=== PATIENT | male | born 1955 | race Caucasian/White ===

== ENCOUNTER → 2017-07-11 | Outpatient (CLI) | payer OTHER ==
[~2017-07-11] MED LIST: ACTOS15 MG; AMBIEN 5 MG TABL5 M1 PO; ASPIR 8181 M1 PO; ASPIRIN81 M2; ATIVAN0.5 MG PO; CARVEDILOL3.125 MG PO; COREG6.25 MG PO; COZAAR 25 MG TA25 M1 PO; COZAAR 25 MG TA25 M2 PO; CRESTOR10 MG PO; LANTUS100 UNIT/M SUBQ; LANTUSSOLASTAR; LASIX 40 MG TAB40 M2 PO; LIPITOR20 MG; LOTREL 10-20 M1 EACH; METFORMIN HCL500 MG PO; ZETIA10 MG; ZETIA10 MG PO
== END ==
LOC: RAD 12:26
DX: R05 Cough (principal); R06.2 Wheezing

== ENCOUNTER 2017-08-15 08:36 | Inpatient (IN) | payer OTHER ==
[~2017-08-15] VITALS: Ht 182.9 cm; Wt 105.2 kg
--- NOTE | ~2017-08-15 | 2DMMODE ---
[facility] [address] [place] [address] 2 D/M-MODE ECHOCARDIOGRAM Name: NADEGE IRVING Room #: 170-4 ADM IN ..#: [id number] Admission: 08/15/17 Attend Phys: [place] Rawls MD Discharge: Date of : 51 Date of Service: 08/15/17 1113 Report #: [id number] THIS REPORT FOR: //name// APPROVED REPORT Study performed: 08/15/2017 10:22:35 EXAM: Comprehensive 2D, Doppler, and color-flow Echocardiogram Patient Location: ER Room #: 4 Status: stat BSA: 2.29 HR: 101 bpm BP: 162/81 mmHg Other Information Study Quality: Adequate Indications Diabetes Dyspnea CAD Cardiomyopathy 2D Dimensions RVDd: 36.64 mm LVEF(%): 20.42 (>50%) IVSd: 12.90 (7-11mm) LVOT Diam: 23.65 (18-24mm) LVDd: 63.52 mm PWd: 13.18 (7-11mm) Ascending Ao: 36.41 (22-36mm) LVDs: 57.47 (25-40mm) Aortic Root: 35.83 mm IVC: 27.00 mm Bob's LVEF: 20.42 % Volumes Left Atrial Volume (Systole) Single Plane 4CH: 56.11 mL Single Plane 2CH: 62.18 mL LA ESV Index: 30.00 mL/m2 Aortic Valve AoV Peak Andre.: 1.14 m/s AO Peak Gr.: 5.23 mmHg LVOT Max P.10 mmHg LVOT Max V: 0.88 m/s GIO Vmax: 3.38 cm2 Pulmonary Valve [facility] [place] [address] 2 D/M-MODE ECHOCARDIOGRAM Name: NADEGE IRVING Room #: 170-4 ADM IN [facility].#: [id number] Admission: 08/15/17 Attend Phys: [place] Rawls MD Discharge: Date of : 51 Date of Service: 08/15/17 1113 Report #: [id number] PV Peak Andre.: 0.90 m/s PV Peak Gr.: 3.21 mmHg Tricuspid Valve TR Peak Andre.: 3.69 m/s TR Peak Gr.: 54.34 mmHg PA Pressure: 69.00 mmHg Left Ventricle Left ventricle is dilated. There is global hypokinesis of the left ventricle. Mild concentric left ventricular hypertrophy. Left ventricular ejection fraction is severely decreased. LVEF is 15-20%. This study is not technically sufficient to allow evaluation of the LV diastolic function. Right Ventricle The right ventricle is normal size. Right ventricle is hypokinetic. Atria Left atrium is at the upper limits of normal. Right atrium is dilated. Aortic Valve The aortic valve is normal in structure. No aortic regurgitation is present. There is no aortic valvular stenosis. Mitral Valve The mitral valve is normal in structure. Mild mitral regurgitation. No evidence of mitral valve stenosis. Tricuspid Valve The tricuspid valve is normal in structure. There is mild tricuspid regurgitation. The right atrial pressure is estimated at mmHg. There is moderate-severe pulmonary hypertension. Pulmonic Valve The pulmonary valve is normal in structure. Trace pulmonic regurgitation. Great Vessels The aortic root is normal in size. The inferior vena cava is dilated with no inspiratory collapse. Pericardium There is no pericardial effusion. [facility] [place] [address] 2 D/M-MODE ECHOCARDIOGRAM Name: NADEGE IRVING Room #: 170-4 ADM IN M.R.#: [id number] Admission: 08/15/17 Attend Phys: [place] Rawls MD Discharge: Date of : 51 Date of Service: 08/15/17 1113 Report #: [id number] <Conclusion> Left ventricle is dilated. There is global hypokinesis of the left ventricle with more prominent mid to apical hypokinesis of anterior wall. LVEF is 15-20%. The right ventricle is normal size. Right ventricle is hypokinetic. Right atrium is dilated. The aortic valve is normal in structure. The mitral valve is normal in structure. Mild mitral regurgitation. The tricuspid valve is normal in structure. There is mild tricuspid regurgitation. The right atrial pressure is estimated approx 60-70 mmHg. There is moderate-severe pulmonary hypertension. There is no pericardial effusion. <ELECTRONICALLY SIGNED> By: Herbert Ceja MD 08/15/17 1113 12 12 Herbert Ceja MD /INF
--- NOTE | ~2017-08-15 | CATHLAB ---
[facility] [address] [place] [address] INVASIVE PROCEDURE REPORT Name: ARISTIDESNADEGE Ruchi Room #: 219-P ADM IN ..#: [id number] Admission: 08/15/17 Attend Phys: [place] Rawls MD Discharge: Date of : 51 Date of Service: 08/18/17 1141 Report #: [id number] THIS REPORT FOR: //name// APPROVED REPORT Patient Details Patient Status: In-Patient Room #: The patient is a 62 year-old male Event Personnel Herbert Ceja Grading Machine Operator, Juan Carlos Fitch RN, Hina Galvez RTR, Daria Roach Amber Monitor Procedures Performed Art Access - L femoral artery* 09938 Initial Mod Sed Same Phys/QHP Gr5y 331050 10631 Mod Sed Same Phys/QHP Ea 533366 Coronaries Angiography and Bypass Grafts 412019 CORCABG Supravalvular Aortography Injection 8156014 ISVA Hemostasis w/ Mynx Indication Non-STEMI (>48 hrs to = 72 hrs), Heart failure Procedure Narrative The patient was brought urgently to the Cardiac Catheterization Laboratory and was prepped and draped in a sterile manner. The Right Groin^ was infiltrated with 1% Lidocaine subcutaneous anesthesia. A PINNACLE 5FR Sheath #[id number] sheath was inserted into the LFA^. Coronary angiography was performed using coronary diagnostic catheters. The right coronary system was accessed and visualized with a JR 4 catheter. The left coronary system was accessed and visualized with a JL 4 catheter. Pre-demployment femoral angiogram was performed . Closure device was deployed with a 5 Fr Mynx. The patient tolerated the procedure well and there were no complications associated with the procedure. There was no hematoma. Intraoperative Conscious Sedation Sedation start time: 12:31 Case end Time: 13:10 Versed 2 mg Fluoro Time: 9.34 minutes Dose: DAP 9837.20 cGycm2 1333 mGy Contrast Type and Amount: Omnipaque 125 ml [facility] [place] [address] INVASIVE PROCEDURE REPORT Name: ARISTIDESNADEGE Room #: 219-P [facility] IN ..#: [id number] Admission: 08/15/17 Attend Phys: [place] Rawls MD Discharge: Date of : 51 Date of Service: 08/18/17 1141 Report #: [id number] Coronary Angiography The patient's coronary anatomy is right dominant. Samish Artery Percent Stenosis Grafts (Complete if Previous CABG=Yes: Percent Stenosis) Left Main: % Prox LAD: % Mid/Distal LAD: 0 % Circumflex: 100 % RCA: 30 % Ramus: % Diagnostic Cath Left Main Normal origin and caliber which rapidly tapers to a distal 90% lesion prior to bifurcating into left anterior descending and left circumflex fluoroscopically heavily calcified LAD Diminutive size vessel heavily calcified on fluoroscopy that has a 95+ percent lesion at its origin and then terminates in the proximal portion. The distal portion is filled via left internal mammary bypass grafting that demonstrates a diminutive vessel with diffuse moderate to high-grade lesions Diagonal 1 Small-caliber vessel diffusely diseased Circumflex Diminutive size vessel with a high-grade lesion at its origin and then continues in the AV groove a short distance and is completely occluded. Marginal branches faintly fill via homo-and heterocollateral collaterals put her string-like in nature Right Coronary Small-caliber vessel which is proximally occluded. The distal portion is supplied by a saphenous vein graft which is patent although flow was sluggish. The right coronary artery circulation is diminutive with string-like vessels which are highly lead diffusely diseased. Left Ventriculography Left Ventriculography was not performed. Aortic root injection was performed which demonstrated a normal size aortic root and ascending aorta. A patent saphenous vein graft to the right coronary artery was noted with no other saphenous vein grafts present Hemodynamics The aortic pressure is 145/86 mmHg with a mean of 102 mmHg. Conclusion 1. Severe coronary artery disease status post aortocoronary bypass grafting with progression of koi disease and occluded SVG of the circumflex circulation 2. Abnormal he whether demonstrated elevated left ventricular end-diastolic pressures [facility] [address] [place] [address] INVASIVE PROCEDURE REPORT Name: SEENADEGE Room #: 219-P [facility] IN M.R.#: [id number] Admission: 08/15/17 Attend Phys: [place] Rawls MD Discharge: Date of : 51 Date of Service: 08/18/17 1141 Report #: [id number] Recommendations Aggressive Medical Therapy Optimize ration of guidelines directed medical therapy for cardiomyopathic disease <ELECTRONICALLY SIGNED> By: Herbert Ceja MD 08/18/17 1141 114 114 Herbert Ceja MD /INF
--- NOTE | ~2017-08-15 | EKG ---
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 : 1955 Requested By: Kim Ahn Order Number: [id number] MD: Brian Jones Measurements Intervals [place] Rate: 101 P: 61 MT: 201 QRS: -6 QRSD: 144 T: 152 QT: 350 QTc: 454 Interpretive Statements Sinus tachycardia Ventricular premature complex Probable left atrial enlargement Left bundle branch block Compared to ECG 02/28/2008 09:44:20 No significant change was found Electronically Signed On 08-16-2017 7:46:46 MOLD MAKING SUPERVISOR by Brian Jones [email or web address] <ELECTRONICALLY SIGNED> By: Brian Jones MD, [facility] 08/16/17 0746 0 0 Brian Jones MD, [facility] /EPI
--- NOTE | ~2017-08-15 | EKG ---
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 : 1955 Requested By: Kim Ahn Order Number: [id number] MD: Brian Jones Measurements Intervals [place] Rate: 102 P: 53 SD: 192 QRS: -6 QRSD: 145 T: 163 QT: 355 QTc: 463 Interpretive Statements Sinus tachycardia Paired ventricular premature complexes Left bundle branch block Compared to ECG 02/28/2008 09:44:20 Ventricular premature complex(es) now present Left bundle branch block is now present Electronically Signed On 08-16-2017 7:46:24 INSOLE AND HEEL STIFFENER by Brian Jones [email or web address] <ELECTRONICALLY SIGNED> By: Brian Jones MD, [facility] 08/16/17 0746 0842 0842 Brian Jones MD, [facility] /EPI
[~2017-08-15 08:36] MED LIST changes: -AMBIEN 5 MG TABL5 M1 PO; -ASPIR 8181 M1 PO; -ATIVAN0.5 MG PO; -CARVEDILOL3.125 MG PO; -COREG6.25 MG PO; -COZAAR 25 MG TA25 M1 PO; -COZAAR 25 MG TA25 M2 PO; -CRESTOR10 MG PO; -LANTUS100 UNIT/M SUBQ; -LASIX 40 MG TAB40 M2 PO; -METFORMIN HCL500 MG PO; -ZETIA10 MG PO
[2017-08-15 08:39] VITALS: BP 156/117
[2017-08-15 09:04] LABS: ABSOLUTE NEUTROPHILS 5.4 thou/uL (1.4-8.2); BASOPHILS 0.6 % (0.0-2.0); EOSINOPHILS 1.6 % (0.0-3.0); HEMATOCRIT 51.2 % (42.0-52.0); HEMOGLOBIN 17.2 gm/dL (14.0-18.0); MCHC 33.7 g/dL (28.0-37.0); MCV 89.3 fL (80.0-100.0); MONOCYTES 8.2 % (1.0-8.0); PLATELET COUNT 187 thou/uL (150-400); POLYS 51.6 % (36.0-66.0); RBC 5.73 mil/uL (4.50-6.00); RDW 14.5 % (10.5-14.5); WBC 10.4 thou/uL (4.0-11.0)
[2017-08-15 09:15] LABS: CALCIUM 9.4 mg/dL (8.5-10.1); CREATININE 1.3 mg/dL (0.7-1.3); POTASSIUM 4.2 mmol/L (3.5-5.1)
[2017-08-15 09:24] LABS: TROPONIN-I 4.53 ng/mL (<0.06)
[2017-08-15] MEDS ORDERED: METFORMIN HCL500 MG PO (09:34)
[2017-08-15 09:46] LABS: APTT 24.8 Seconds (24.5-32.8); PROTIME 10.5 Seconds (9.3-11.4)
[2017-08-15 11:09] VITALS: BP 145/100
[2017-08-15 15:13] VITALS: BP 150/94
[2017-08-15 19:15] VITALS: BP 133/81
[2017-08-16 00:12] VITALS: BP 155/96
[2017-08-16 01:03] LABS: CALCIUM 8.8 mg/dL (8.5-10.1); CREATININE 1.3 mg/dL (0.7-1.3); POTASSIUM 3.9 mmol/L (3.5-5.1)
[2017-08-16 03:51] VITALS: BP 132/101
[2017-08-16 07:25] VITALS: BP 161/84
[2017-08-16 11:54] VITALS: BP 134/78
[2017-08-16 16:20] VITALS: BP 137/86
[2017-08-16 19:54] VITALS: BP 133/79
[2017-08-16 19:59] LABS: HEMATOCRIT 48.1 % (42.0-52.0); HEMOGLOBIN 16.2 gm/dL (14.0-18.0); MCH 30.1 pg (26.0-34.0); MCHC 33.7 g/dL (28.0-37.0); MCV 89.4 fL (80.0-100.0); RBC 5.38 mil/uL (4.50-6.00); RDW 14.3 % (10.5-14.5); WBC 8.8 thou/uL (4.0-11.0)
[2017-08-16 20:04] LABS: CALCIUM 9.2 mg/dL (8.5-10.1); CREATININE 1.3 mg/dL (0.7-1.3); POTASSIUM 4.4 mmol/L (3.5-5.1)
[2017-08-17] VITALS (16 sets, daily range): BP systolic 112–156; BP diastolic 63–106
[2017-08-17 04:17] LABS: CALCIUM 9.2 mg/dL (8.5-10.1); CREATININE 1.2 mg/dL (0.7-1.3); POTASSIUM 4.2 mmol/L (3.5-5.1)
[2017-08-18] VITALS (8 sets, daily range): BP systolic 137–150; BP diastolic 63–101
[2017-08-18 03:26] LABS: HEMOGLOBIN 16.3 gm/dL (14.0-18.0); MCHC 33.2 g/dL (28.0-37.0); MCV 90.6 fL (80.0-100.0); RBC 5.41 mil/uL (4.50-6.00); RDW 14.3 % (10.5-14.5); WBC 9.5 thou/uL (4.0-11.0)
[2017-08-18 03:32] LABS: CALCIUM 9.3 mg/dL (8.5-10.1); CREATININE 1.2 mg/dL (0.7-1.3); POTASSIUM 4.5 mmol/L (3.5-5.1)
[2017-08-18] MEDS ORDERED: CARVEDILOL3.125 MG PO (11:00)
[2017-08-18] MEDS ORDERED: COZAAR 25 MG TA25 M1 PO (11:00)
[2017-08-18] MEDS ORDERED: LASIX 40 MG TAB40 M2 PO (11:00)
[2017-08-19 04:00] VITALS: BP 124/84
[2017-08-19 07:40] VITALS: BP 136/97
[2017-08-19 11:20] VITALS: BP 123/66
[2017-08-19] MEDS ORDERED: COZAAR 25 MG TA25 M2 PO (11:39)
[2017-08-19 11:57] VITALS: BP 136/97
[2017-08-19 12:16] VITALS: BP 136/97
== END 2017-08-19 15:07 | disposition home or self-care (01) | DRG 280 ==
LOC: ER 08:36 → 2N 09:42 → EROBS 09:42 → 2N 11:23
PROVIDERS: Emergency Medicine; Hospitalist; Internal Medicine
PROC: B2111ZZ Fluoroscopy of Multiple Coronary Arteries using Low Osmolar Contrast (ICD-10-PCS; principal; 2017-08-18)
PROC: B21F1ZZ Fluoroscopy of Other Bypass Graft using Low Osmolar Contrast (ICD-10-PCS; principal; 2017-08-18)
PROC: 4A023N7 Measurement of Cardiac Sampling and Pressure, Left Heart, Percutaneous Approach (ICD-10-PCS; principal; 2017-08-18)
DX: I21.4 Non-ST elevation (NSTEMI) myocardial infarction (principal); I50.23 Acute on chronic systolic (congestive) heart failure; J42 Unspecified chronic bronchitis; E11.9 Type 2 diabetes mellitus without complications; E78.5 Hyperlipidemia, unspecified; I11.0 Hypertensive heart disease with heart failure; I25.10 Atherosclerotic heart disease of native coronary artery without angina pectoris; I25.5 Ischemic cardiomyopathy; I25.2 Old myocardial infarction; Z95.1 Presence of aortocoronary bypass graft; Z79.899 Other long term (current) drug therapy; Z79.82 Long term (current) use of aspirin; Z79.4 Long term (current) use of insulin
CPT/HCPCS: 10194

== ENCOUNTER 2017-11-11 07:28 | Observation (INO) | payer OTHER ==
[~2017-11-11] VITALS: Ht 182.9 cm; Wt 105.8 kg
[2017-11-11] VITALS (11 sets, daily range): BP systolic 132–182; BP diastolic 62–137
--- NOTE | ~2017-11-11 | H ---
[facility] [place] [address] [address] HISTORY AND PHYSICAL Name: ARISTIDESNADEGE Room #: 217-P [facility] M.R.#: [id number] Admission: 11/11/17 Attend Phys: Herbert Ceja Discharge: 11/12/17 Date of : 51 Report #: [id number] THIS REPORT FOR: //name// CC: Herbert Rutherford HISTORY OF PRESENT ILLNESS: He is a very pleasant gentleman, known to me, who presents for elective insertion of an implantable cardioverter defibrillator. The patient has been diagnosed with ischemic cardiomyopathy, was optimized on medical regimen and presents for assessment after failed improvement of left ventricular function. Otherwise, history is unchanged from that recorded in the chart from the office. PHYSICAL EXAMINATION: GENERAL: Shows an alert and oriented male, resting comfortably, in no distress. VITAL SIGNS: I have reviewed his vitals in the chart. HEENT: Normocephalic, atraumatic. Pupils are equal, round, reactive to light and accommodation. Extraocular muscles are intact. Sclerae and conjunctivae are anicteric. NECK: JVD is normal. Carotid upstrokes are bilaterally symmetrical. No bruits are heard. No thyromegaly. No lymphadenopathy. LUNGS: Clear to auscultation. No wheezes, rhonchi or crackles. No CVA tenderness. CARDIAC: Demonstrates a regular rhythm. Normal first and second heart sounds. No ventricular or atrial gallops, no rubs noted. No murmurs. No lifts or heaves, PMI normal. ABDOMEN: Soft, nontender, nondistended. Normal bowel sounds. EXTREMITIES: Without cyanosis, clubbing or edema. Distal pulses are intact. DTR symmetrical. NEUROLOGIC: Cranial nerves 2-12 are grossly normal and symmetrical. PSYCHIATRIC: Alert, oriented with normal affect. SKIN: Warm and dry. IMPRESSION: Cardiomyopathy, presents for ICD placement for primary prevention having been optimized on medical regimen. Risks, complications and alternatives of procedure have been discussed with the patient who voiced understanding and wishes to proceed. <ELECTRONICALLY SIGNED> By: Herbert Ceja MD 11/23/17 1632 1739 1750 Herbert Ceja MD /nt
--- NOTE | ~2017-11-11 | CATHLAB ---
[facility] [place] [address] INVASIVE PROCEDURE REPORT Name: SEENADEGE NICHOLAS Room #: 217-P [facility] IN M.R.#: [id number] Admission: 11/11/17 Attend Phys: Herbert Chowdary Discharge: 11/12/17 Date of : 51 Date of Service: 11/21/17 1721 Report #: [id number] THIS REPORT FOR: //name// APPROVED REPORT Study performed: 11/11/2017 11:06:15 Event Personnel: Herbert Ceja Senior Research Consultant, Nicki Huff Monitor, Hina Galvez RTR, Daljit Roach Christine RTR Monitor, Juan Carlos Fitch RN The patient is a 62 year-old male with a history of . Patient Info Last EF%: 30 Date: 10/11/17 NYHA Heart Class: II CHF: Chronic Systolic Reason for implant: Primary prevention Intraoperative Conscious Sedation Sedation start time: 12:01 Case end Time: 13:19 Versed 5 mg Implanted Devices: [employer] generator model CD 235 74 0 every 0 number [id number], atrial lead 2088 TC/52 serial number [id number], ventricular lead 71-2 every serial number [id number] Procedure After explaining the risks, benefits, and alternative options, informed consent was obtained from the patient. The patient was brought to the cardiac catheterization lab and the left chest and shoulder were prepped and draped in the usual fashion. During this case, Fluoroscopy and no contrast were used for imaging. Complications The patient tolerated the procedure well and there were no complications associated with the procedure. Patient was sedated with intravenous Versed and Demerol. Total dosing is noted in the chart. Continuous elective cardiographic and oximetric monitoring occurred that entire procedure. Following sedation visualization of the first ray was noted on fluoroscopy. [facility] [address] [place] [address] INVASIVE PROCEDURE REPORT Name: NADEGE IRVING CRISTOPHER Room #: 217-P [facility] IN M.R.#: [id number] Admission: 11/11/17 Attend Phys: Herbert Chowdary Discharge: 11/12/17 Date of : 51 Date of Service: 11/21/17 1721 Report #: [id number] Local anesthetic involving one percent lidocaine was then instilled in the proposed incision and deep in the tissues. Using both sharp and blunt dissection and incision was carried forth in a pocket developed. Utilizing a modified Seldinger technique the left subclavian vein was accessed with 2 separate sticks. Peel-away sheath were then placed leads were advanced under fluoroscopic visualization and positioned. These were screw-in leads with the atrial lead in the right atrial appendage and the right ventricular single coil lead in the mid intraventricular septum. Capture sensing thresholds were then verified her device was then connected the pocket the chest device and the leads were all irrigated with antibiotic solution. The device is in place in the pocket and closed with 3 layers to deeper layers were with nonabsorbable running locking sutures and the skin was closed with a 30 absorbable subcuticular stitch. Steri-Strips 4 x 4 OpSite was then utilized. There were no complications and patient tolerated procedure well Findings Specimens Removed: No Right atrial P wave 3.2 mV impedance 478 ohms capture threshold 0.7 V at a pulse width of 0.5 ms Right ventricular R waves 10.7 mV impedance 691 ohms capture threshold of 0.4 at 0.5 ms pulse width Setting DDD base rate of 60 max sensor of 120. VT zone at 181 VF zone at 222 Conclusion 1. Successful implantation of a dual-chamber ICD Recommendations 1. Routine post ICD implantation card and myopathic patient. Wound check in 7 days follow-up in 4 weeks. <ELECTRONICALLY SIGNED> By: Herbert Ceja MD 11/21/17 172 20 20 Herbert Ceja MD /INF
[~2017-11-11 07:28] MED LIST changes: +CARVEDILOL3.125 MG PO; +COZAAR 25 MG TA25 M1 PO; +COZAAR 25 MG TA25 M2 PO; +LASIX 40 MG TAB40 M2 PO; +METFORMIN HCL500 MG PO
[2017-11-11] MEDS ORDERED: ASPIR 8181 M1 PO (08:07)
[2017-11-11] MEDS ORDERED: LASIX 40 MG TAB40 M2 PO (08:08)
[2017-11-11] MEDS ORDERED: COREG6.25 MG PO (08:08)
[2017-11-11] MEDS ORDERED: ZETIA10 MG PO (08:08)
[2017-11-11] MEDS ORDERED: LANTUS100 UNIT/M SUBQ (08:09)
[2017-11-11] MEDS ORDERED: METFORMIN HCL500 MG PO (08:10)
[2017-11-11] MEDS ORDERED: COZAAR 25 MG TA25 M1 PO (08:10)
[2017-11-11] MEDS ORDERED: ATIVAN0.5 MG PO (08:10)
[2017-11-11] MEDS ORDERED: CRESTOR10 MG PO (08:10)
[2017-11-11] MEDS ORDERED: AMBIEN 5 MG TABL5 M1 PO (08:11)
[2017-11-12 00:09] VITALS: BP 151/67
[2017-11-12 04:54] VITALS: BP 154/74
[2017-11-12 07:50] VITALS: BP 174/70
[2017-11-12 10:12] VITALS: BP 174/70
== END 2017-11-12 13:00 | disposition home or self-care (01) ==
LOC: CATH 07:28 → 2N 08:13 → CATH 10:32 → 2N 14:20 → CATH 15:49 → 2N 11-12 13:00
DX: I25.5 Ischemic cardiomyopathy (principal); I25.10 Atherosclerotic heart disease of native coronary artery without angina pectoris; I10 Essential (primary) hypertension; E78.5 Hyperlipidemia, unspecified; Z79.899 Other long term (current) drug therapy; Z79.82 Long term (current) use of aspirin; Z95.810 Presence of automatic (implantable) cardiac defibrillator

== ENCOUNTER → 2018-04-03 | Outpatient (CLI) | payer OTHER ==
[~2018-04-03] MED LIST changes: +AMBIEN 5 MG TABL5 M1 PO; +ASPIR 8181 M1 PO; +ATIVAN0.5 MG PO; +COREG6.25 MG PO; +CRESTOR10 MG PO; +LANTUS100 UNIT/M SUBQ; +ZETIA10 MG PO
[2018-04-03 09:30] LABS: PROTIME 10.3 Seconds (9.3-11.4)
== END | disposition home or self-care (01) ==
LOC: RAD 08:12
PROVIDERS: Radiology Diagnostic Radiology
DX: M48.061 Spinal stenosis, lumbar region without neurogenic claudication (principal); M12.88 Other specific arthropathies, not elsewhere classified, other specified site; M99.73 Connective tissue and disc stenosis of intervertebral foramina of lumbar region; M51.36 Other intervertebral disc degeneration, lumbar region; I21.4 Non-ST elevation (NSTEMI) myocardial infarction; E11.9 Type 2 diabetes mellitus without complications; I11.0 Hypertensive heart disease with heart failure; I50.9 Heart failure, unspecified; Z95.810 Presence of automatic (implantable) cardiac defibrillator; Z98.890 Other specified postprocedural states; Z79.82 Long term (current) use of aspirin; Z79.84 Long term (current) use of oral hypoglycemic drugs; Z79.4 Long term (current) use of insulin; Z79.899 Other long term (current) drug therapy; Z95.1 Presence of aortocoronary bypass graft; Z96.641 Presence of right artificial hip joint

== ENCOUNTER → 2018-10-25 | Outpatient (CLI) | payer OTHER | LOC: RAD 10:01 | DX: M16.12 Unilateral primary osteoarthritis, left hip (principal); M25.562 Pain in left knee ==

== ENCOUNTER → 2020-01-14 | Outpatient (CLI) | payer OTHER ==
[~2020-01-14] VITALS: Ht 182.9 cm; Wt 99.8 kg
[~2020-01-14] MED LIST changes: +ENTRESTO 49 MG1 EACH PO; +PLAVIX 75 MG TA75 MG PO
--- NOTE | 2020-01-15 16:06 | PATH ---
[facility] [address] [address] PATHOLOGY RPT PROCEDURE Name: ARISTIDESNADEGE Room #: REG PAT Olivarez.#: [id number] Admission: 01/14/20 Date of : 51 Discharge: Report #: [id number] Path Case #: [id number] [facility] Accession Number: [id number] . 01 Material submitted: . PART A: sigmoid colon - SIGMOID COLON POLYP PART B: rectum - RECTAL COLON POLYP . 01 Clinical history: . COVID, hx of polyps, blood in stool . 02 Diagnosis: A. Polyp, sigmoid colon polyp, endoscopic biopsy: - Hyperplastic polyp. - Negative for dysplasia. . B. Polyp, rectal colon polyp, endoscopic biopsy: - Hyperplastic polyp. - Negative for dysplasia. (IUV:pit 01/15/2020) QTP 01/15/2020 1307 Local . 02 Electronically signed: . Tiffani Burrell MD, Pathologist NPI- [id number] . 01 Gross description: . A. The specimen is received in formalin labeled "Nadege Salomon, sigmoid colon polyp" and consists of 2 fragments of antonio tissue measuring 0.6 x 0.3 x 0.2 cm in aggregate which are entirely submitted in A1. . B. The specimen is received in formalin labeled "Nadege Salomon, rectal colon polyp" and consists of a fragment of antonio tissue measuring 0.3 x 0.3 x 0.2 cm which is entirely submitted in B1. ([facility]; 01/14/2020) JFQ/JAYME 01/14/2020 2135 Local . 02 Pathologist provided ICD-10: K63.5, K62.1 . 02 CPT . 955871, 800283 Specimen Comment: A courtesy copy of this report has been sent to [phone], [phone] Specimen Comment: [phone] Specimen Comment: Report sent to / DR NAM Specimen Comment: A duplicate report has been [place] [address] PATHOLOGY RPT PROCEDURE Name: NADEGE SALOMON Room #: REG PAT Gómez#: [id number] Admission: 01/14/20 Date of : 51 Discharge: Report #: [id number] Path Case #: [id number] updates. Performed at: 01 [facility] [place] [address], [place] [id number] MD Freddy Gregorio MD Phone: [phone] Performed at: [address] [id number] MD Tiffani Burrell MD Phone: [phone]
--- NOTE | 2020-01-16 11:50 | P ---
[facility] [place] [address] [address] PROCEDURE REPORT Name: NADEGE IRVING [id number] Admission: 01/14/20 Attend Phys: Saroj Wolf Discharge: Date of : 51 Report #: [id number] THIS REPORT FOR: cc: Cheko Rutherford MD, Rene P. MD McElhinney, Christian C. MD ~ CC: Saroj Rutherford MD DATE OF SERVICE: 01/14/2020 PROCEDURE PERFORMED: Colonoscopy with biopsies. HISTORY OF PRESENT ILLNESS: The patient is a 64-year-old male with a history of colon polyps on colonoscopy in 2013, recent Hemoccult positive stool test on 11/24/2019. The patient denies any history of anemia. He denies any melena or bright red blood per rectum. His bowel movements have been normal. No family history of colon cancer. DESCRIPTION OF PROCEDURE: The risks and benefits of the procedure were explained to the patient, those risks including but not limited to bleeding, perforation and the risk of sedation. He understood these risks and gave informed consent. Sedation was given using propofol per anesthesia. Next, a digital rectal exam was initially performed, which was normal. Next, using a pediatric Olympus colonoscope, the scope was placed in the patient's anus and advanced under direct vision to the cecum. The overall prep was good. The cecum and ileocecal valve were normal in appearance. The ascending, transverse and descending colon were normal. In the sigmoid colon, a 3 mm sessile polyp was noted. This was removed by cold forceps. A few small diverticula were also noted. No evidence of inflammation. In the rectum, another 3 mm sessile polyp also noted and removed with cold forceps. On retroflexion, small nonbleeding internal hemorrhoids were noted. Also, a single external hemorrhoid, nonbleeding was also noted. The scope was then withdrawn and the procedure terminated. The patient tolerated the procedure well. IMPRESSION: 1. Two small colonic polyps. 2. Sigmoid diverticulosis. 3. Internal and external hemorrhoids. 4. Otherwise, normal colonoscopy. RECOMMENDATIONS: 1. Await biopsy results. 2. If polyps are hyperplastic, repeat colonoscopy in 10 years; if adenomatous polyp, repeat in [address] [address] PROCEDURE REPORT Name: SEENADEGE Room #: REG PAT Gómez#: [id number] Admission: 01/14/20 Attend Phys: Saroj Wolf Discharge: Date of : 51 Report #: [id number] 3. No evidence of bleeding on colonoscopy today. Hemoccult positive stool may be secondary to hemorrhoids. If the patient is not anemic, consider monitoring hemoglobin. If he becomes anemic in the future, consider possible upper endoscopy at that point. Thank you for allowing me to participate in his care. <ELECTRONICALLY SIGNED> By: Saroj Rowe MD 01/16/20 1150 0958 1013 Saorj Rowe MD /nt
== END ==
LOC: GI 08:09
PROVIDERS: ATTEND Specialist
DX: R19.5 Other fecal abnormalities (principal); K63.5 Polyp of colon; K62.1 Rectal polyp; K57.30 Diverticulosis of large intestine without perforation or abscess without bleeding; K64.8 Other hemorrhoids; K64.4 Residual hemorrhoidal skin tags; Z11.59 Encounter for screening for other viral diseases; Z86.010 Personal history of colon polyps; Z79.899 Other long term (current) drug therapy
CPT/HCPCS: 62110; 62900

== ENCOUNTER → 2020-08-12 | Outpatient (CLI) | payer OTHER | LOC: SJCVCIMAG 09:27 | PROVIDERS: ATTEND Internal Medicine | DX: I70.203 Unspecified atherosclerosis of native arteries of extremities, bilateral legs (principal); I25.5 Ischemic cardiomyopathy; I50.9 Heart failure, unspecified; E11.9 Type 2 diabetes mellitus without complications; I34.0 Nonrheumatic mitral (valve) insufficiency; I25.10 Atherosclerotic heart disease of native coronary artery without angina pectoris; I49.3 Ventricular premature depolarization; Z95.828 Presence of other vascular implants and grafts; Z95.0 Presence of cardiac pacemaker; Z79.899 Other long term (current) drug therapy; Z87.891 Personal history of nicotine dependence ==

== ENCOUNTER 2021-06-10 12:24 | Emergency (ER) | payer OTHER ==
[~2021-06-10] VITALS: Ht 182.9 cm; Wt 104.3 kg
[2021-06-10 14:02] LABS: ABSOLUTE NEUTROPHILS 4.8 thou/uL (1.4-8.2); BASOPHILS 0.1 % (0.0-2.0); EOSINOPHILS 5.1 % (0.0-3.0); HEMATOCRIT 54.6 % (42.0-52.0); HEMOGLOBIN 17.9 gm/dL (14.0-18.0); LYMPHOCYTES 32.6 % (24.0-44.0); MCH 30.5 pg (26.0-34.0); MCHC 32.8 g/dL (28.0-37.0); MCV 93.1 fL (80.0-100.0); MONOCYTES 7.2 % (1.0-8.0); PLATELET COUNT 180 thou/uL (150-400); RBC 5.87 mil/uL (4.50-6.00); WBC 8.7 thou/uL (4.0-11.0)
[2021-06-10 14:10] LABS: CALCIUM 9.3 mg/dL (8.5-10.1); CREATININE 1.1 mg/dL (0.7-1.3); POTASSIUM 4.6 mmol/L (3.5-5.1)
[2021-06-10 14:20] LABS: ALBUMIN 4.2 g/dL (3.4-5.0); TOTAL BILIRUBIN 0.8 mg/dL (0.2-1.0); TOTAL PROTEIN 7.2 g/dL (6.4-8.2)
[2021-06-10] MEDS ORDERED: MECLIZINE HCL25 MG PO (15:07)
[2021-06-10 15:20] VITALS: BP 154/67
--- NOTE | 2021-06-11 08:44 | EKG ---
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'S Aide: MALI : 1955 Requested By: Lona Mauricio Order Number: [id number] MD: Brian Jones Measurements Intervals [place] Rate: 152 P: 229 DE: 109 QRS: -63 QRSD: 122 T: QT: 191 QTc: 304 Interpretive Statements Atrial fibrillation Multiple premature complexes, vent Left bundle branch block Compared to ECG 08/15/2017 09:31:53 Atrial fibrillation has replaced sinus tachycardia Electronically Signed On 06-11-2021 8:44:07 DIRECTOR PHYSICAL by Brian Jones [email or web address] <ELECTRONICALLY SIGNED> By: Brian Jones MD, [facility] 06/11/21 0844 1235 1235 Brian Jones MD, FACC /EPI
--- NOTE | 2021-06-11 08:45 | EKG ---
[place] [address] [place] [address] ELECTROCARDIOGRAM REPORT Name: NADEGE IRVING [facility] [id number] Admission: 06/10/21 Attend Phys: Discharge: 06/10/21 Date of : 51 Report #: [id number] [facility] ED Test Date: 2021-06-10 Test Time: 13:45:00 Pat Name: NADEGE IRVING Department: Room: Gender: M Growth Hacker: WOLF : 1955 Requested By: Lona Mauricio Order Number: [id number] MD: Brian Jones Measurements Intervals [place] Rate: 67 P: MS: 275 QRS: -65 QRSD: 132 T: 110 QT: 401 QTc: 424 Interpretive Statements Sinus rhythm with atrial-paced complexes Prolonged MS interval Left bundle branch block Compared to ECG 06/10/2021 12:35:22 Sinus rhythm with atrial pacing has replaced atrial fibrillation Electronically Signed On 06-11-2021 8:45:12 AUTO BODY MECHANIC by Brian Jones [email or web address] <ELECTRONICALLY SIGNED> By: Brain Jones MD, [facility] 06/11/21 0845 1345 1345 Brian Jones MD, FAC /EPI
== END 2021-06-10 15:20 | disposition home or self-care (01) ==
LOC: ER 12:24
PROVIDERS: Physician Assistant
DX: R42 Dizziness and giddiness (principal); Z20.822 Contact with and (suspected) exposure to COVID-19; I10 Essential (primary) hypertension; E11.9 Type 2 diabetes mellitus without complications; I25.2 Old myocardial infarction; E78.5 Hyperlipidemia, unspecified; E78.00 Pure hypercholesterolemia, unspecified; E66.9 Obesity, unspecified; Z90.89 Acquired absence of other organs; Z95.1 Presence of aortocoronary bypass graft; Z68.31 Body mass index [BMI] 31.0-31.9, adult; Z79.4 Long term (current) use of insulin; Z79.82 Long term (current) use of aspirin; Z79.899 Other long term (current) drug therapy; Z79.891 Long term (current) use of opiate analgesic; Z79.1 Long term (current) use of non-steroidal anti-inflammatories (NSAID)